=== PATIENT | male | born 1935 | race Caucasian/White ===

== ENCOUNTER 2022-06-12 09:22 | Day surgery (SDC) | payer OTHER ==
[~2022-06-12] VITALS: Ht 172.7 cm; Wt 99.1 kg
[2022-06-12] MEDS ORDERED: VANCOMYCIN 1,500MG in normal saline IV soln 300 ML IV ONE (09:49)
[2022-06-12] MEDS ORDERED: cefazolin/dext.iso 2gm/100ml 100 ML IV ONE (09:50)
[2022-06-12 10:13] VITALS: BP 151/70
[2022-06-12 10:42] LABS: BASOPHILS # (AUTO) 0.1 X10'3 (0-0.2); BASOPHILS % (AUTO) 0.8 % (0-1); EOSINOPHILS # (AUTO) 0.1 X10'3 (0-0.9); EOSINOPHILS % (AUTO) 1.4 % (0-6); HEMATOCRIT 45.8 % (42.0-52.0); HEMOGLOBIN 15.5 g/dl (14.0-17.9); LYMPHOCYTES # (AUTO) 1.5 X10'3 (1.1-4.8); LYMPHOCYTES % (AUTO) 19.6 % (21-51); MEAN CORPUSCULAR HEMOGLOBIN 30.8 PG (27.0-31.0); MEAN CORPUSCULAR HGB CONC 33.8 g/dL (33.0-36.5); MEAN CORPUSCULAR VOLUME 91.2 FL (78-98); MEAN PLATELET VOLUME 8.5 FL (7.4-10.4); MONOCYTES # (AUTO) 0.6 X10'3 (0-0.9); MONOCYTES % (AUTO) 7.6 % (2-12); NEUTROPHILS # (AUTO) 5.5 X10'3 (1.8-7.7); NEUTROPHILS % (AUTO) 70.6 % (42-75); PLATELET COUNT 194 X10'3 (140-440); RED BLOOD COUNT 5.03 X10'6 (4.70-6.10); RED CELL DISTRIBUTION WIDTH 14.5 % (11.5-14.5); WHITE BLOOD COUNT 7.8 X10'3 (4.5-11.0)
[2022-06-12 10:51] LABS: ALBUMIN 3.9 G/DL (3.4-5.0); ANION GAP 6 (8-16); BLOOD UREA NITROGEN 26 MG/DL (7-18); BUN/CREATININE RATIO 12.7 (5.4-32.0); CHLORIDE 103 MMOL/L (99-107); CREATININE 2.04 MG/DL (0.60-1.10); GLUCOSE 159 MG/DL (70-104); MAGNESIUM 2.4 MG/DL (1.5-2.4); POTASSIUM 4.5 MMOL/L (3.5-5.1); SODIUM 138 MMOL/L (135-145); TOTAL CARBON DIOXIDE 29.3 MMOL/L (24-32); eGFR 31 ML/MIN
[2022-06-12] MEDS ORDERED: EMPA10TA PO (11:14)
[2022-06-12] MEDS ORDERED: LISI40TA13 PO (11:14)
[2022-06-12] MEDS ORDERED: ASPI-1265 PO (11:14)
[2022-06-12] MEDS ORDERED: ALOG25TA PO (11:14)
[2022-06-12] MEDS ORDERED: CHOL20002 PO (11:14)
[2022-06-12] MEDS ORDERED: LANTUS SQ (11:14)
[2022-06-12] MEDS ORDERED: FURO-150 PO (11:14)
[2022-06-12] MEDS ORDERED: CYAN500T71 PO (11:14)
[2022-06-12] MEDS ORDERED: ROSU10TA2 PO (11:14)
[2022-06-12] MEDS ORDERED: MAGN400C PO (11:14)
[2022-06-12] MEDS ORDERED: LIDOCAINE 2%/EPI 1:100,000 inj. Multi-dose 20 ML VIAL ONE (12:15)
[2022-06-12] MEDS ORDERED: fentaNYL/PF 50MCG/1 ML 2ML syringe ONE (12:15)
[2022-06-12] MEDS ORDERED: midazolam 1 mg/ML 2ml injection ONE (12:15)
[2022-06-12] MEDS ORDERED: vancomycin 1,000mg inj ONE (12:16)
[2022-06-12 13:38] VITALS: BP 117/47
[2022-06-12 14:00] VITALS: BP 127/67
[2022-06-12 14:15] VITALS: BP 118/51
[2022-06-12 14:30] VITALS: BP 126/63
[2022-06-12] MEDS ORDERED: normal saline 1000ml 1,000 ML IV SCH (14:30)
[2022-06-12 14:45] VITALS: BP 142/68
== END 2022-06-12 15:30 | disposition home or self-care (01) ==
LOC: SSTAY O 09:22
PROVIDERS: ATTEND Internal Medicine Cardiovascular Disease
DX: Z45.010 Encounter for checking and testing of cardiac pacemaker pulse generator [battery] (principal); E11.22 Type 2 diabetes mellitus with diabetic chronic kidney disease; I12.9 Hypertensive chronic kidney disease with stage 1 through stage 4 chronic kidney disease, or unspecified chronic kidney disease; N18.30 Chronic kidney disease, stage 3 unspecified; I25.119 Atherosclerotic heart disease of native coronary artery with unspecified angina pectoris; E78.00 Pure hypercholesterolemia, unspecified; K21.9 Gastro-esophageal reflux disease without esophagitis; I35.0 Nonrheumatic aortic (valve) stenosis; Z95.5 Presence of coronary angioplasty implant and graft; Z79.82 Long term (current) use of aspirin; Z79.4 Long term (current) use of insulin; Z79.899 Other long term (current) drug therapy
CPT/HCPCS: 33228; 36415; 80048; 82948; 83735; 85025; 85610; 93005; 99152; 99153; C1785; J2250; J3010; J3370; J7030; J7040